=== PATIENT | male | born 1940 | race Caucasian/White ===

== ENCOUNTER → 2017-10-23 | Day surgery (SDC) | payer OTHER ==
[~2017-10-23] VITALS: Ht 182.9 cm; Wt 103.4 kg
[~2017-10-23] MED LIST: CIPRO500 M1 PO; MIRALAX119 GM PO
--- NOTE | 2017-10-23 09:52 | Operative Report ---
Operative/Inv Procedure Report Surgery Date: 10/23/17 Name of Procedure: transurethral section of prostate Pre-Operative Diagnosis: Benign prostatic hypertrophy with failed medical therapy Post-Operative Diagnosis: Same Estimated Blood Loss: 50ml to 100ml Surgeon/Integration Director: Светлана Ribeiro MD Anesthesia: laryngeal mask airway Drains: 22 [place] three-way [place] Specimens: Prostate chips Complications: None Condition: Stable Operative Indication: Benign prostatic hypertrophy with difficulty urinating with failed medical therapy Operative/Procedure Note Note: This is a 77-year-old male with a history of benign prostatic hypertrophy who was treated with conservative management with single prosthetic medications followed by dual therapy. He did have initial improvement but went back to baseline and wished to have surgery. He was given the risks, benefits, and alternatives of the surgery and this was reviewed with the patient in the office as well as the patient and the patient's son in the holding area. All questions were answered. The sent was signed in the holding area. Patient was brought to the operating room and timeout was performed. IV antibiotics were infused. LMA anesthesia was begun. SCDs were placed bilaterally. Patient was then placed in the dorsolithotomy position and prepped in the standard sterile fashion. Cystoscopy was performed and the bladder was globally inspected. There were no bladder stones no lesions no masses and mild trabeculation. A middle lobe was not seen however the ureteral orifices were very close to the bladder neck. The prostate was very large with lateral kissing lobes. The cystoscope was removed and the resectoscope was placed with the bipolar energy. The resection was begun at 3:00 and carried sequentially down to 6:00 and then from 3:00 to 12:00. Care was taken not to go beyond the bladder neck or the verumontanum as the anatomic boundaries. Same was performed on the patient's right side starting at 9:00 down to 6 followed by 9 to 12:00. Point coagulation was performed on bleeders as they were encountered. Prostate chips were Elliked out periodically. The ureteral orifices were evaluated periodically as well to ensure that they were not injured. Once the bladder was emptied of prostatic chips and all bleeding was coagulated there was a nice channel from the bladder neck to the verumontanum. The resectoscope was removed and a [address] when he 2 [place] was placed and 20 mL of water was placed into the balloon port. The prostatic chips were sent to pathology. The patient tolerated the procedure well. He was transferred to the recovery room stable condition. Findings: Large lateral kissing lobes. Intact bilateral ureteral orifices at the end of the case. Nice open channel from the bladder neck to the verumontanum. Discharge Disposition: PACU
== END ==
LOC: STS 01:50
DX: N40.1 Benign prostatic hyperplasia with lower urinary tract symptoms (principal); R39.11 Hesitancy of micturition; R39.14 Feeling of incomplete bladder emptying; R39.198 Other difficulties with micturition; Z87.891 Personal history of nicotine dependence; R32 Unspecified urinary incontinence; R53.83 Other fatigue; I10 Essential (primary) hypertension; M19.90 Unspecified osteoarthritis, unspecified site
CPT/HCPCS: J0690; J1100; J2405

== ENCOUNTER 2017-10-24 00:23 | Emergency (ER) | payer OTHER ==
[~2017-10-24] VITALS: Ht 182.9 cm; Wt 104.3 kg
--- NOTE | 2017-10-24 00:39 | ED GI/GU/ABDOMINAL COMPLAINT ---
History of Present Illness General Chief Complaint: Male Genitourinary Problems Stated Complaint: "PROSTATE SURGERY TODAY, NO URINE SINCE 9PM" Source: patient Exam Limitations: no limitations Vital Signs & Intake/Output Vital Signs & Intake/Output Vital Signs Date Time Temp Pulse Resp B/P B/P Pulse O2 O2 Flow FiO2 Mean Ox Delivery Rate 10/24 0333 97.7 86 20 139/81 96 Room Air 10/24 0211 96 Room Air 10/24 0031 97.6 92 20 163/83 98 Room Air Allergies Coded Allergies: No Known Allergies (10/21/17) Reconcile Medications Ciprofloxacin HCl (Cipro) 500 MG TABLET 1 TAB PO BID urine infection prevention Polyethylene Glycol 3350 (Miralax) 17 GRAM/DOSE POWDER 17 GM PO BID constipation mix with water, juice, soda, coffee or tea Triage Note: 77YO MALE TO TRIAGE W/CO LOW ABD PAIN, NO DRAINAGE FROM [place] SINCE 2099. STATES HE "HAD PROSTATE SURG THURSDAY AND HAD CATH PLACED THEN" Triage Nurses Notes Reviewed? yes Onset: Gradual Duration: hour(s): Timing: recent history Quality/Severity: cramping Location: suprapubic Radiation: no radiation Activities at Onset: none Prior Abdominal Problems: none Modifying Factors: Worsens With: other ("mckinnon stopped working"). Associated Symptoms: abdominal pain HPI: 77 yo gentleman had "roto rooter" per patient, discharged at 3pm with a mckinnon in place. He shares, "Everything was working great, but then I stopped urinating a few hours ago." He notes lower abdominal discomfort, without fever, chills, nausea, vomiting. Past History Travel History Traveled to [place] past 21 day No Medical History Any Pertinent Medical History? see below for history Cardiovascular: hypertension, hyperlipidemia Renal: bph Surgical History Surgical History: prostate surgery Family History Hx Contributory? No Review of Systems Review of Systems Constitutional: Reports: no symptoms. EENTM: Reports: no symptoms. Respiratory: Reports: no symptoms. Cardiovascular: Reports: no symptoms. GI: Reports: no symptoms. Genitourinary: Reports: no symptoms. Musculoskeletal: Reports: no symptoms. Skin: Reports: no symptoms. Neurological/Psychological: Reports: no symptoms. Hematologic/Endocrine: Reports: no symptoms. Immunologic/Allergic: Reports: no symptoms. All Other Systems: Reviewed and Negative Physical Exam Physical Exam General Appearance: well developed/nourished, mild distress Head: atraumatic, normal appearance Eyes: Bilateral: normal appearance. Ears, Nose, Throat, Mouth: hearing grossly normal, moist mucous membrane Neck: normal inspection, full range of motion Respiratory: normal breath sounds, chest non-tender, no respiratory distress, quiet respiration, lungs clear Cardiovascular: regular rate/rhythm Gastrointestinal: normal bowel sounds, soft, non-tender Back: normal inspection Extremities: normal range of motion Neurologic/Psych: no motor/sensory deficits, awake, alert, oriented x 3 Skin: intact, normal color, warm/dry Core Measures ACS in differential dx? No Sepsis Present: No Sepsis Focused Exam Completed? No Progress Differential Diagnosis: urinary retention vs other. Plan of Care: Orders Procedure Date/time Status M[place], Insertion/Removal/Asses 10/24 25 Active CULTURE,URINE 10/24 25 Active URINALYSIS 10/24 25 Complete Laboratory Tests 10/24/17 0055: Urinalysis MOD H, Urine Color CARLITA, Urine Clarity CLEAR, Urine pH 6.5, Ur Specific [place] 1.010, Urine Protein 100 H, Urine Ketones NEG, Urine Nitrite POS H, Urine Bilirubin NEG, Urine Urobilinogen 0.2, Ur Leukocyte Esterase SMALL H, Ur Microscopic SEDIMENT EXAMINED, Urine RBC >75 H, Urine WBC 10-15 H, Ur Epithelial Cells FEW, Urine Bacteria RARE H, Urine Hemoglobin LARGE H, Urine Glucose NEG Microbiology 10/24 54 URINE ROUT: Urine Culture - RECD Initial ED EKG: none Departure Departure Disposition: HOME OR SELF CARE Condition: Stable Clinical Impression Primary Impression: Urinary retention Referrals: [place] PATINO,Andres Mckeon (PCP/Family) Departure Forms: Customer Survey General Discharge Information Prescriptions: Current Visit Scripts Ciprofloxacin HCl (Cipro) 1 TAB PO BID #14 TAB Polyethylene Glycol 3350 (Miralax) 17 GM PO BID #255 GM mix with water, juice, soda, coffee or tea Comments 10/24/17, 3:44AM.... pt feeling better ... mckinnon replaced, now draining well... gave cipro for prophylaxis. pt feels comfortable going home with his family.
[2017-10-24 03:33] VITALS: BP 139/81
[2017-10-24] MEDS ORDERED: CIPRO500 M1 PO ×2 (03:39→03:43)
[2017-10-24] MEDS ORDERED: MIRALAX119 GM PO ×2 (03:40→03:43)
== END 2017-10-24 04:02 ==
LOC: ERH 00:23
DX: R33.9 Retention of urine, unspecified (principal)
CPT/HCPCS: 81001; 87086